=== PATIENT | male | born 1980 | race Caucasian/White ===

== ENCOUNTER 2023-04-02 10:14 | Day surgery (SDC) | payer BC ==
[2023-04-01 12:08] VITALS: BMI 32.1
[2023-04-02] MEDS ORDERED: CEFAZOLIN 2 GM VIAL ONE (10:52)
[2023-04-02] MEDS ORDERED: Sodium Chloride 0.9% 100 ML ONE (10:52)
[2023-04-02] MEDS ORDERED: Lidocaine 1% MPF 2 ML VIAL ONE (10:52)
[2023-04-02] MEDS ORDERED: Acetaminophen 500 MG TAB ONE (10:57)
[2023-04-02] MEDS ORDERED: Ketorolac Tromethamine 30 MG/ML VIAL ONE (10:57)
[2023-04-02] MEDS ORDERED: Midazolam HCl 2 mg/2 ml Vial ONE ×2 (12:10)
[2023-04-02] MEDS ORDERED: fentaNYL 50 mcg/mL 1 mL Vial ONE ×2 (12:11)
[2023-04-02] MEDS ORDERED: Lidocaine 2% PF 5 ML VIAL ONE (12:21)
[2023-04-02] MEDS ORDERED: Bupivacaine HCl 0.5%/Epinephrine 1:200,000/PF 30 ml Vial ONE (12:21)
[2023-04-02] MEDS ORDERED: Lidocaine 1% PF 5 ML VIAL ONE (12:57)
[2023-04-02] MEDS ORDERED: PROPOFOL 200 MG/20 ML VIAL ONE (12:57)
== END 2023-04-02 14:40 | disposition home or self-care (01) ==
LOC: SDC 10:14
PROVIDERS: ATTEND Specialist
PROC: 0JH60WZ Insertion of Totally Implantable Vascular Access Device into Chest Subcutaneous Tissue and Fascia, Open Approach (ICD-10-PCS; principal; 2023-04-02)
DX: C62.90 Malignant neoplasm of unspecified testis, unspecified whether descended or undescended (principal)
CPT/HCPCS: 71045; C1788; J1642; J1885; J2001; J2250; J2704; J3010; J3490